=== PATIENT | male | born 1975 | race Caucasian/White ===

== ENCOUNTER 2018-01-10 14:15 | Emergency (ER) | payer OTHER ==
[~2018-01-10] VITALS: Ht 170.2 cm; Wt 102.1 kg
[~2018-01-10 14:15] MED LIST: ACETAMINOPHEN325 M1 PO; AZITHROMYCIN 2250 MG PO; DOXYCYCLINE 10100 MG PO; FLEXERIL PO; MEDROLDOSEPACK PO; NAPROSYN500 MG PO; PENICILLIN V P500 MG PO; PERCOCET 7.5-31 EACH PO; PROAIR HFA8.5 GM INH; PROMETHAZINE-D120 ML PO; PROVENTIL HFA6.7 G1 INH; TRAMADOL 50 MG50 MG PO; ZPAK PO
[2018-01-10] MEDS ORDERED: ALEVE220 MG PO (14:22)
[2018-01-10] MEDS ORDERED: IBUPROFEN 600600 M1 PO (14:22)
[2018-01-10 15:10] VITALS: BP 120/80
== END 2018-01-10 15:11 | disposition left against medical advice (07) ==
LOC: M.ERS 14:15
DX: Z53.21 Procedure and treatment not carried out due to patient leaving prior to being seen by health care provider (principal)